=== PATIENT | female | born 1980 | race Caucasian/White ===

== ENCOUNTER → 2016-10-04 17:42 | Outpatient (CLI) | payer MEDICAID ==
[2015-11-15 12:20] VITALS: BMI 25.7
[~2016-10-04 17:42] MED LIST: CELEXA20 MG PO; DEMEROL50 MG PO; ELIQUIS2.5 MG PO; FERROUS SULFAT325 MG PO; IRON PO; LEVAQUIN500 MG PO; MEPERIDINE HCL50 MG PO; PERCOCET 10/3251 TA1 PO; VENTOLIN HFA18 GM INH; [UNRECOGNIZED DRUG - OTHER]
== END | disposition home or self-care (01) ==
LOC: D.LABREF 17:42
DX: M17.9 Osteoarthritis of knee, unspecified (principal); Z11.8 Encounter for screening for other infectious and parasitic diseases

== ENCOUNTER 2016-10-30 10:02 | Inpatient (IN) | payer MEDICAID ==
[2016-10-26 14:33] LABS: BASOPHILS 0.2 % (0.0-2.0); EOSINOPHILS 1.5 % (0-7); HEMATOCRIT 39.3 % (36.0-48.0); IMMATURE GRANULOCYTES 0.2 % (0-5); MCH 31.9 pg (26.0-34.0); MCHC 33.1 g/dL (31.0-37.0); MCV 96.6 fL (80.0-100.0); MONOCYTES 4.1 % (2-11); PLATELET COUNT 158 10x3/uL (130-400); RBC 4.07 10x6/uL (4.00-5.40); RDW 13.9 % (11.5-14.5); WBC 5.9 10x3/uL (4.8-10.8)
[2016-10-26 14:42] LABS: APPEARANCE CLOUDY (CLEAR); APTT 30.8 SECONDS (22.8-39.4); BACTERIA MODERATE /hpf (NONE SEEN); BILIRUBIN NEGATIVE (NEGATIVE); COLOR YELLOW (YELLOW); GLUCOSE NEGATIVE (NEGATIVE); INR 0.99 (0.85-1.17); KETONE NEGATIVE (NEGATIVE); LEUKOCYTE ESTERASE TRACE (NEGATIVE); NITRITE POSITIVE (NEGATIVE); PROTEIN NEGATIVE (NEGATIVE); PROTIME 12.9 SECONDS (11.6-15.0); RED CELLS - URINE OCC /hpf (0-5); SPECIFIC GRAVITY 1.015 (1.005-1.020); UROBILINOGEN NORMAL (NORMAL)
[2016-10-26 14:50] LABS: CALC OSMOLALITY 279 mosm/kg (275-300); CALCIUM 8.3 mg/dL (8.5-10.1); CARBON DIOXIDE 30.2 mmol/L (21.0-32.0); CHLORIDE - SERUM 106 mmol/L (98-107); CREATININE - SERUM 0.7 mg/dL (0.6-1.3); GLUCOSE 84 mg/dL (74-106); POTASSIUM - SERUM 4.1 mmol/L (3.5-5.1); SODIUM 142 mmol/L (136-145); UREA NITROGEN 6 mg/dL (7-18); eGFR NON AFRICAN AMERICAN > 90 mL/min (90-120)
[~2016-10-30] VITALS: Ht 182.9 cm; Wt 89.1 kg
[2016-10-30] VITALS (8 sets, daily range): BP systolic 101–119; BP diastolic 65–72; Ht 182.9 cm; Wt 89.1 kg
[~2016-10-30 10:02] MED LIST changes: -LEVAQUIN500 MG PO; -MEPERIDINE HCL50 MG PO
[2016-10-30 11:32] LABS: APPEARANCE SLT CLOUDY (CLEAR); BACTERIA MANY /hpf (NONE SEEN); BILIRUBIN NEGATIVE (NEGATIVE); COLOR YELLOW (YELLOW); GLUCOSE NEGATIVE (NEGATIVE); KETONE NEGATIVE (NEGATIVE); LEUKOCYTE ESTERASE 1+ (NEGATIVE); MUCUS <1+ /lpf (NONE SEEN); NITRITE POSITIVE (NEGATIVE); PROTEIN TRACE mg/dL (NEGATIVE); RED CELLS - URINE RARE /hpf (0-5); SPECIFIC GRAVITY 1.015 (1.005-1.020); UROBILINOGEN NORMAL (NORMAL); WHITE CELLS - URINE 0-5 /hpf (0-5)
--- NOTE | 2016-10-30 15:14 | NUR ---
RECEIVED TO ROOM 2210 AT THIS TIME FROM THE RECOVERY ROOM VIA BED. PT IS ALERT AND ORIENTED. VITAL SIGNS INITIATED PER POST PROCEDURE PROTOCOL. DRESSING TO RIGHT KNEE C/D/I. FAMILY AT BEDSIDE. IV TO LEFT HAND PATENT. SCD'S ON TO BLE AND WORKING. BED ALARM ON. HISTORY AND ASSESSMENT PERFORMED PER FLOWSHEET. CALL LIGHT IN REACH, WILL CONTINUE WITH PLAN OF CARE.
--- NOTE | 2016-10-30 17:00 | NUR ---
DENIES NEEDS AT THIS TIME. CERTIFIED EXECUTIVE CHEF IN USE FOR PAIN CONTROL. CALL LIGHT IN REACH, WILL CONTINUE WITH PLAN OF CARE.
--- NOTE | 2016-10-31 01:06 | NUR ---
RESTING WITH EYES CLOSED, RESP WITH EASE, DSG CDI, CL IN REACH
[2016-10-31 03:42] VITALS: BP 99/50
[2016-10-31 04:00] VITALS: BP 95/53
[2016-10-31 06:44] LABS: HEMATOCRIT 35.6 % (36.0-48.0); HEMOGLOBIN 11.7 g/dL (12-16); MCH 31.6 pg (26.0-34.0); MCHC 32.9 g/dL (31.0-37.0); MCV 96.2 fL (80.0-100.0); MEAN PLATELET VOLUME 12.4 fL (7.4-10.4); RBC 3.7 10x6/uL (4.00-5.40); RDW 13.7 % (11.5-14.5); WBC 10.7 10x3/uL (4.8-10.8)
--- NOTE | 2016-10-31 08:00 | NUR ---
PT SEEN AND ASSESSED. NO COMPLAINTS AT PRESENT. HISTORY OF ASTHMA AND SMOKER-EXP WHEEZES NOT LOWER LOBES BILAT. NO SOB NOTED OR VOICED. RIGHT LEG FROM MID THIGH TO TOES WRAPPED WITH ALISHA AND TOES ARE PINK, WARM, AND ABLE TO MOVE FREELY. 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 BED ALARM ON AFOR SAFETY AND CALL LIGHT IN REACH
[2016-10-31 08:39] VITALS: BP 100/54
--- NOTE | 2016-10-31 11:14 | OP ---
PATIENT NAME: EDIL ROTH MEDICAL RECORD: [id number] :[birth year] LOCATION:D.[facility] ADMISSION DATE:10/30/16 SURGEON: MARTINA CASTLE MD DATE OF OPERATION: 10/30/2016 PREOPERATIVE DIAGNOSIS: Patellofemoral symptoms, status post total knee arthroplasty. POSTOPERATIVE DIAGNOSIS: Patellofemoral symptoms, status post total knee arthroplasty. PROCEDURE: Revision total knee arthroplasty-patellar revision. SURGEON: Martina Castle MD ANESTHESIA: General. INTRAOPERATIVE COMPLICATIONS: None. SUMMARY OF PATHOLOGIC FINDINGS: The patient had hypertrophic overgrowth medially and laterally about the patella of osteophytes. A very tight lateral retinaculum. SURGERY PERFORMED: Patellaplasty, lateral release and excision of osteophytes. OPERATIVE SUMMARY IN DETAIL: After obtaining the appropriate preoperative orthopedic surgery consent as well as anesthetic consultation, evaluation and clearance, the patient was placed in supine position. After adequate general laryngeal mask was administered, tourniquet was placed about the proximal aspect of the right lower extremity. Right lower extremity was then prepped and draped in routine sterile fashion. Leg was elevated, exsanguinated and tourniquet was inflated to 250 mmHg. Midline incision was made, taken down to the level of patella, patella would not easily brendan. However, serial sequential osteophyte removal was done around this, the saw was used to excise the previous patellar component, which was not loose. After this was done, substantial amounts of medial and lateral osteophytes along with scar tissue were taken down. A full lateral release was performed. At this point, pulsatile lavage irrigation was carried out. The patella was then reprepared for another patellar resurface. The surface component used this time was a size 29 [place] cemented. Having completed this, the paramedian arthrotomy was closed with #2 Ethibond followed by #1 Vicryl, 2-0 Vicryl and skin cori. Sterile dressings were applied. The tourniquet was deflated. The patient was awakened, taken to recovery room in stable condition. All final needle and sponge counts were correct. TRANSINT:[id number] Voice Confirmation ID: [id number] DOCUMENT ID: [id number] MARTINA CASTLE MD at 1114 CC: [id number] DICTATION DATE: 10/30/16 1436 HEAD TELLER: 10/30/162117 ADM IN [facility] [address] [id number]
[2016-10-31 12:26] VITALS: BP 105/58
--- NOTE | 2016-10-31 14:40 | NUR ---
* Is the patient Alert and Oriented? Yes 0 * How many steps to enter\exit or inside your home? 0 0 * PCP None 0 * Pharmacy [facility] [address] * Preadmission Environment Home with Family 0 * ADLs Independent 0 * Equipment Crutch Rolling Walker 0 * List name and contact numbers for known caregivers / representatives who currently or will assist patient after discharge: Karunaienalex Preciado [phone] 0 * Additional services required to return to the preadmission environment? Yes 0 * Can the patient safely return to the preadmission environment? Yes 0 * Has this patient been hospitalized within the prior 30 days at any hospital? No 10/31/2016 14:41 DCP: Discharge Planning Patient Name: EDIL ROTH Admission Status: Elective Accout number: [id number] Admission Date: 10-30-2016 : 1980 Admission Diagnosis: Attending: LORETTA Current LOS: 1 Anticipated DC Date: 10-31-2016 Planned Disposition: Outpatient PT\OT Primary Insurance: [facility] PRIVATE OPTIONS [facility] Discharge Planning Comments: CM met with patient to assess dc plans/needs. Patient states she recently moved back to [place] with her boyfriend. She reports she is independent with all ADL's & IADL's. She has a walker & crutches. She has chosen [facility] for outpatient physical therapy. Appt. scheduled 11/06 @ 1100. No other needs identified at this time. Anticipate dc tomorrow afternoon. CM will follow. Chief Nurse: Amanda Palacios
[2016-10-31 16:58] VITALS: BP 95/50
[2016-10-31 19:00] VITALS: BP 99/50
--- NOTE | 2016-10-31 23:03 | NUR ---
RESTING WITH EYES CLOSED, NO RESP DISTRESS NOTED, CL IN REACH
[2016-11-01 04:00] VITALS: BP 96/41
[2016-11-01 05:25] LABS: HEMATOCRIT 32.5 % (36.0-48.0); HEMOGLOBIN 10.6 g/dL (12-16); MCH 31.2 pg (26.0-34.0); MCHC 32.6 g/dL (31.0-37.0); MCV 95.6 fL (80.0-100.0); MEAN PLATELET VOLUME 11.9 fL (7.4-10.4); RBC 3.4 10x6/uL (4.00-5.40); RDW 14.1 % (11.5-14.5)
[2016-11-01 05:41] LABS: WBC 6.1 10x3/uL (4.8-10.8)
[2016-11-01 07:57] VITALS: BP 97/50
[2016-11-01] MEDS ORDERED: LEVAQUIN500 MG PO (08:42)
[2016-11-01] MEDS ORDERED: ELIQUIS2.5 MG PO (08:42)
[2016-11-01] MEDS ORDERED: MEPERIDINE HCL50 MG PO (08:43)
--- NOTE | 2016-11-01 10:43 | NUR ---
11/01/2016 10:41 DCP: Discharge Planning Patient Name: EDIL ROTH Encounter No: [id number] : 1980 Primary Insurance: [employer] OPTIONS [employer] Anticipated DC Date: 10-31-2016 Planned Disposition: Outpatient PT\OT External Planned Provider: [facility] DCP follow-up note: DC order rec'd. Patient and family in agreement with discharge plan. No changes to plan. Amanda Palacios
--- NOTE | 2016-11-01 11:06 | NUR ---
PT SEEN THIS AM. COMPLAINTED OF PAIN THIS AM OF 06/10. GAVE PAIN PILL AT 0740. NO ALISHA WRAP NOTED DUE TO BLEEDING DURING THE NIGHT. CURRENTLY DRESSING TO LEFT KNEE HAS SOME DRIED BLOOD ON IT. WILL BE FOR DISCHARGE LATER TODAY. CURRENTLY UP IN CHAIR WITH NO COMPLAINTS OF PAIN. DRESSING TO KNEE CHANGED AND NEW AQUALCEL APPLIED. CLIPS CLEAN DRY AND INTACT.
[2016-11-01 11:57] VITALS: BP 98/44
== END 2016-11-01 12:15 | disposition home or self-care (01) | DRG 464 ==
LOC: D.MS 10:02 → D.SDCHOLD 10:02 → D.MS 13:18
PROVIDERS: ADMIT Orthopaedic Surgery
PROC: 0SUC09C Supplement Right Knee Joint with Liner, Patellar Surface, Open Approach (ICD-10-PCS; 2016-10-30)
PROC: 0SPC0JC Removal of Synthetic Substitute from Right Knee Joint, Patellar Surface, Open Approach (ICD-10-PCS; principal; 2016-10-30 12:30)
DX: T84.84XA Pain due to internal orthopedic prosthetic devices, implants and grafts, initial encounter (principal); N39.0 Urinary tract infection, site not specified; M25.761 Osteophyte, right knee; F17.200 Nicotine dependence, unspecified, uncomplicated

== ENCOUNTER 2017-02-08 05:52 | Day surgery (SDC) | payer MEDICAID ==
[2017-02-07 15:03] LABS: HEMATOCRIT 39.1 % (36.0-48.0); HEMOGLOBIN 12.9 g/dL (12-16); MCH 31.4 pg (26.0-34.0); MCV 95.1 fL (80.0-100.0); MEAN PLATELET VOLUME 12.5 fL (7.4-10.4); RBC 4.11 10x6/uL (4.00-5.40); RDW 14.2 % (11.5-14.5); WBC 5.3 10x3/uL (4.8-10.8)
[~2017-02-08] VITALS: Ht 182.9 cm; Wt 90.7 kg
[~2017-02-08 05:52] MED LIST changes: +LEVAQUIN500 MG PO; +MEPERIDINE HCL50 MG PO; +ZANAFLEX4 MG PO
[2017-02-08 10:48] VITALS: BP 113/60; Ht 182.9 cm; Wt 90.7 kg
[2017-02-08] MEDS ORDERED: DILAUDID2 MG PO (13:04)
--- NOTE | 2017-02-08 16:16 | NUR ---
1445 IV DC WITH CATHER TIP INTACT
--- NOTE | 2017-02-12 18:11 | OP ---
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 PROCEDURES: 1. Lateral facet patellectomy done through arthrotomy. 2. Lateral release. SURGEON: Martina Castle MD. ANESTHESIA: General. INTRAOPERATIVE COMPLICATIONS: None. SUMMARY OF PATHOLOGIC FINDINGS: The patient had a huge recurring lateral facet/osteophyte status post total knee arthroplasty with severe patellofemoral pain along the lateral patellofemoral joint. OPERATIVE SUMMARY IN DETAIL: After obtaining the appropriate preoperative orthopedic surgery consent as well as anesthetic consultation, evaluation and clearance, the patient was brought to the operating room and placed on the operating table in supine position. After general laryngeal mask was administered, tourniquet was placed about the proximal aspect of the left lower extremity. The left lower extremity was then prepped and draped in a routine sterile fashion. An incision was made at the lateral aspect of the patella, taken down to the lateral aspect of patella. Care was taken to dissect the fibers of the quadriceps mechanism completely away and around the large over running facet. This was then taken off using a small TPS saw to the edge of the patient's previously placed patellar replacement, but care was taken not to disturb it. The incision was elongated and the lateral release was left open, wound was copiously irrigated and at this point, closed with #1 Vicryl followed by skin cori. Sterile dressings were applied. Tourniquet was deflated. The patient was awakened and taken to the recovery room in stable condition. All final needle and sponge counts were correct. TRANSINT:[id number] Voice Confirmation ID: [id number] DOCUMENT ID: [id number] CORRINE LEWIS, MARTINA BARNES at 1811 CC: [id number] DICTATION DATE: 02/09/17 1442 PHYSICAL BIOCHEMIST: 02/10/17 0108 [facility] 02/08/17 [place] [address]
== END 2017-02-08 15:00 | disposition home or self-care (01) ==
LOC: D.OPS 05:52 → D.PAN 12:15 → D.OPS 14:00
PROVIDERS: Anesthesiology
DX: M22.41 Chondromalacia patellae, right knee (principal); M22.2X1 Patellofemoral disorders, right knee; M17.0 Bilateral primary osteoarthritis of knee; Z01.812 Encounter for preprocedural laboratory examination

== ENCOUNTER → 2017-11-01 08:22 | Outpatient (CLI) | payer MEDICAID ==
[2017-02-08 10:48] VITALS: BMI 27.2
[~2017-11-01 08:22] MED LIST changes: +DILAUDID2 MG PO
== END | disposition home or self-care (01) ==
LOC: D.LABREF 08:22
DX: M25.561 Pain in right knee (principal); Z11.8 Encounter for screening for other infectious and parasitic diseases

== ENCOUNTER 2017-11-14 10:00 | Inpatient (IN) | payer MEDICAID ==
[~2017-11-14] VITALS: Ht 177.8 cm; Wt 89.8 kg
--- NOTE | ~2017-11-14 | OP ---
PATIENT NAME: EDIL ROTH MEDICAL RECORD: [id number] :[birth year] LOCATION:[facility] [place]- ADMISSION DATE:11/19/17 SURGEON: MARTINA CASTLE MD DATE OF OPERATION: 11/19/2017 PREOPERATIVE DIAGNOSIS: Painful patella, status post revision total knee arthroplasty. POSTOPERATIVE DIAGNOSIS: Painful patella, status post revision total knee arthroplasty. PROCEDURE: Revision of right patella. SURGEON: Martina Castle MD ANESTHESIA: General. INTRAOPERATIVE COMPLICATIONS: None. SUMMARY OF PATHOLOGIC FINDINGS: Again, the patient had lateral overgrowth and based on preoperative merchant view, the patient had a residual angulation deformity. The patella was revised so that the patient would no longer have lateral facet pain. IMPLANTS USED: Triathlon X3 symmetric patella size 29 x 8 mm. Vitagel was used at the end of the case. OPERATIVE SUMMARY IN DETAIL: After obtaining the appropriate preoperative orthopedic surgery consent as well as anesthetic consultation, evaluation and clearance, the patient was brought to the operating room and placed on the operating table in supine position. After general laryngeal mask airway was administered, tourniquet was placed about the proximal aspect of the right lower extremity. Right lower extremity was then prepped and draped in routine sterile fashion. Leg was elevated, exsanguinated and tourniquet was inflated to 350 mmHg. Routine midline incision was used again just exactly as the prior incision. This was taken down. The patella was everted. The patellar component was cut off and then a second cut was made elating down in a way so that in the normal position the patella would sit flat and not with the excessive lateral tilt as it had in the past. The wound was copiously irrigated of all bone fragments and the freshened patellar cut was then made ready for the new patella. A trial was put into place, taken through range of motion. There was no more lateral facet impingement. At this point, the final component was cemented into place. All excess cement was removed out the patella. Cement was allowed to harden, the knee was taken through range of motion and tracked nicely. The paramedian arthrotomy was closed with #2 Ethibond followed by #1 Vicryl, 2-0 Vicryl and skin cori. Sterile dressings were applied. The patient was awakened, taken to recovery room in stable condition. All final needle and sponge counts were correct. TRANSINT:[id number] Voice Confirmation ID: [id number] DOCUMENT ID: [id number] OPERATIVE REPORT [id number] EDIL ROTH MD, MARTINA BARNES at 1321 CC: [id number] DICTATION DATE: 11/19/17 1018 CONCRETE PILE DRIVER OPERATOR: 11/19/17 1124 ADM IN [id number] [place] [address]
[2017-11-16] MEDS ORDERED: CELEXA10 MG PO (10:55)
[2017-11-16] MEDS ORDERED: EPIPEN0.3 MG/0.3 IM (10:55)
[2017-11-16] MEDS ORDERED: TESSALON PERLE100 MG PO (10:55)
[2017-11-16] MEDS ORDERED: ZANAFLEX4 MG PO (10:56)
[2017-11-16] MEDS ORDERED: TOPAMAX50 MG PO (10:56)
[2017-11-16] MEDS ORDERED: PROAIR HFA8.5 GM INH (10:57)
[2017-11-16] MEDS ORDERED: BREO ELLIPTA 11 EACH INH (10:57)
[2017-11-16 11:16] LABS: BASOPHILS 0.1 % (0-2); EOSINOPHILS 1.1 % (0-7); HEMATOCRIT 39.2 % (36.0-48.0); HEMOGLOBIN 13.3 g/dL (12-16); IMMATURE GRANULOCYTES 0.1 % (0-5); LYMPHOCYTES 23.1 % (15-50); MCH 32.4 pg (26.0-34.0); MCHC 33.9 g/dL (31.0-37.0); MCV 95.6 fL (80.0-100.0); MEAN PLATELET VOLUME 11.7 fL (7.4-10.4); MONOCYTES 7.2 % (2-11); NEUTROPHILS 68.4 % (40-80); RDW 13.8 % (11.5-14.5); WBC 7.2 10x3/uL (4.8-10.8)
[2017-11-16 11:25] LABS: APPEARANCE SLT CLOUDY (CLEAR); BACTERIA MANY /hpf (NONE SEEN); BILIRUBIN NEGATIVE (NEGATIVE); CALC OSMOLALITY 276 mosm/kg (275-300); CALCIUM 8.8 mg/dL (8.5-10.1); CARBON DIOXIDE 26.9 mmol/L (21.0-32.0); CHLORIDE - SERUM 105 mmol/L (98-107); COLOR YELLOW (YELLOW); CREATININE - SERUM 0.8 mg/dL (0.6-1.3); GLUCOSE 97 mg/dL (74-106); GLUCOSE NEGATIVE (NEGATIVE); KETONE NEGATIVE (NEGATIVE); NITRITE NEGATIVE (NEGATIVE); POTASSIUM - SERUM 3.8 mmol/L (3.5-5.1); PROTEIN NEGATIVE (NEGATIVE); RED CELLS - URINE 0-5 /hpf (0-5); SODIUM 139 mmol/L (136-145); SPECIFIC GRAVITY 1.015 (1.005-1.020); UREA NITROGEN 11 mg/dL (7-18); UROBILINOGEN NORMAL (NORMAL); WHITE CELLS - URINE 0-5 /hpf (0-5); eGFR NON AFRICAN AMERICAN 85 mL/min (90-120)
[2017-11-16 11:26] LABS: MUCUS <1+ /lpf (NONE SEEN)
[2017-11-16 11:32] LABS: PLATELET COUNT 191 10x3/uL (130-400)
[2017-11-16 11:45] LABS: APTT 33.1 SECONDS (22.8-39.4); INR 1.06 (0.85-1.17); PROTIME 13.4 SECONDS (11.6-15.0)
[2017-11-19 06:52] VITALS: BP 96/61; Ht 177.8 cm; Wt 89.8 kg
[2017-11-19] MEDS ORDERED: MEPERIDINE HCL50 MG PO (10:15)
== END 2017-11-19 15:31 | disposition home or self-care (01) | DRG 468 ==
LOC: D.SDCHOLD 11-19 06:48
PROVIDERS: Orthopaedic Surgery
PROC: 0SRC0J9 Replacement of Right Knee Joint with Synthetic Substitute, Cemented, Open Approach (ICD-10-PCS; 2017-11-19)
PROC: 0SPC0JC Removal of Synthetic Substitute from Right Knee Joint, Patellar Surface, Open Approach (ICD-10-PCS; principal; 2017-11-19 08:30)
DX: T84.84XA Pain due to internal orthopedic prosthetic devices, implants and grafts, initial encounter (principal); M22.41 Chondromalacia patellae, right knee

== ENCOUNTER → 2017-11-16 09:09 | Outpatient (CLI) | payer MEDICAID ==
[2017-02-08 10:48] VITALS: BMI 27.2
[~2017-11-16 09:09] MED LIST changes: +BREO ELLIPTA 11 EACH INH; +CELEXA10 MG PO; +EPIPEN0.3 MG/0.3 IM; +PROAIR HFA8.5 GM INH; +TESSALON PERLE100 MG PO; +TOPAMAX50 MG PO
== END | disposition home or self-care (01) ==
LOC: D.US 09:09
DX: R10.9 Unspecified abdominal pain (principal)

== ENCOUNTER → 2017-12-13 19:35 | Outpatient (CLI) | payer MEDICAID ==
[2017-11-19 06:52] VITALS: BMI 28.4
== END | disposition home or self-care (01) ==
LOC: D.MAMMO 10-29 15:30
DX: Z12.31 Encounter for screening mammogram for malignant neoplasm of breast (principal)

== ENCOUNTER → 2018-01-14 18:20 | Outpatient (CLI) | payer MEDICAID ==
[2017-11-19 06:52] VITALS: BMI 28.4
== END | disposition home or self-care (01) ==
LOC: D.MAMMO 14:30
DX: R92.1 Mammographic calcification found on diagnostic imaging of breast (principal)

== ENCOUNTER 2018-07-22 19:00 | Outpatient (CLI) | payer MEDICAID ==
[2017-11-19 06:52] VITALS: BMI 28.4
== END 2018-07-22 23:59 | disposition home or self-care (01) ==
LOC: D.MAMMO 19:00
DX: N63.21 Unspecified lump in the left breast, upper outer quadrant (principal)

== ENCOUNTER 2019-02-13 01:32 | Emergency (ER) | payer MEDICAID ==
[~2019-02-13] VITALS: Ht 177.8 cm; Wt 109.1 kg
[2019-02-13 01:38] VITALS: Ht 177.8 cm; Wt 109.1 kg
[2019-02-13] MEDS ORDERED: ZOLOFT25 MG PO (01:39)
[2019-02-13] MEDS ORDERED: ULTRAM50 MG PO (04:04)
[2019-02-13 04:15] VITALS: BP 107/49
== END 2019-02-13 04:15 | disposition home or self-care (01) ==
LOC: D.ER 01:32
DX: S60.211A Contusion of right wrist, initial encounter (principal); W18.31XA Fall on same level due to stepping on an object, initial encounter; Y93.89 Activity, other specified; Y92.013 Bedroom of single-family (private) house as the place of occurrence of the external cause